=== PATIENT | female | born 1995 | race Caucasian/White ===

== ENCOUNTER → 2018-04-15 11:46 | Outpatient (CLI) | payer OTHER, MEDICAID, SELFPAY ==
[2018-04-15 11:10] VITALS: BMI 22.0
[2018-04-15 12:07] LABS: Absolute Lymphocyte Count 4.28 X10^3/ul (0.83-4.51); Absolute Neutrophil Count 4.5 X10^3/uL (2.0-7.7); Basophil# 0.05 X10^3/uL; Basophil% 0.5 % (0-1); Eosinophil# 0.45 X10^3/uL; Eosinophils% 4.6 % (0-5); Hematocrit 38.3 % (37-47); Hemoglobin 12.5 g/dl (12.0-15.0); Lymphocyte # 4.28 X10^3/ul (4.0); Lymphocyte % 43.8 % (19-41); Mean Corp Hgb Conc 32.6 g/gl (32-36); Mean Corpuscular Hgb 28.3 pg (27.0-32.0); Mean Corpuscular Volume 86.7 fL (81-99); Mean Platelet Vol. 9.3 fl (6.2-12.0); Monocyte# 0.51 X10^3/uL; Monocyte% 5.2 % (0-10); Neutrophil # 4.46 X10^3/uL (2.7-7.7); Neutrophil % 45.7 % (47-70); Platelet Count 276 K/mm3 (150-450); RBC Distribution Width CV 13.1 % (11.6-14.6); RBC Distribution Width SD 41.8 fl (35.1-43.9); Red Blood Count 4.42 M/mm3 (4.2-5.4); White Blood Count 9.8 K/mm3 (4.4-11.0)
[2018-04-15 12:10] LABS: POSITIVE COUNT NO; POSITIVE DIFFERENTIAL NO; POSITIVE MORPHOLOGY NO
[2018-04-15 12:21] LABS: Thyroid Stim Hormone (TSH) 1.65 uIU/mL (0.358-3.74)
== END ==
PROVIDERS: Family Provider Family Medicine; PCP Family Medicine; Referring Provider Obstetrics & Gynecology; Visit Provider Obstetrics & Gynecology
DX: N80.9 Endometriosis, unspecified (principal)
CPT/HCPCS: 36415; 84443; 85025

== ENCOUNTER → 2018-04-23 12:50 | Outpatient (CLI) | payer OTHER, MEDICAID, SELFPAY ==
[2018-04-15 11:10] VITALS: BMI 22.0
--- NOTE | 2018-04-23 12:52 | US_ITS ---
HISTORY: DUB, ENDOMETRIOSIS TECHNIQUE: Transvaginal pelvic ultrasound was performed. Grayscale, spectral and color flow Doppler evaluation of the adnexa. COMPARISON: CT abdomen and pelvis 03/05/14. FINDINGS: UTERUS: anteverted The uterus measures 7.0 x 4.2 x 3.4 cm. There is no uterine mass. The endometrial stripe measures 3.4 mm in AP diameter which is within normal limits. RIGHT OVARY: 2.0 x 2.1 x 2.0 cm. Non-enlarged, normal echogenicity. There is normal arterial inflow and venous outflow present in the right ovary. LEFT OVARY: 2.9 x 1.8 x 1.5 cm. Non-enlarged, normal echogenicity. There is normal arterial inflow and venous outflow present in the left ovary. FREE FLUID: None. US/Pelvic (Non ) IMPRESSION: Unremarkable pelvic ultrasound. at 0507 Reported and signed by: Raymundo Blanchard MD Electronically Signed: Raymundo Blanchard, at 5:06 EDT Tel , Service support ,
--- NOTE | 2018-04-23 12:52 | US_ITS ---
HISTORY: DUB, ENDOMETRIOSIS TECHNIQUE: Transvaginal pelvic ultrasound was performed. Grayscale, spectral and color flow Doppler evaluation of the adnexa. COMPARISON: CT abdomen and pelvis 03/05/14. FINDINGS: UTERUS: anteverted The uterus measures 7.0 x 4.2 x 3.4 cm. There is no uterine mass. The endometrial stripe measures 3.4 mm in AP diameter which is within normal limits. RIGHT OVARY: 2.0 x 2.1 x 2.0 cm. Non-enlarged, normal echogenicity. There is normal arterial inflow and venous outflow present in the right ovary. LEFT OVARY: 2.9 x 1.8 x 1.5 cm. Non-enlarged, normal echogenicity. There is normal arterial inflow and venous outflow present in the left ovary. FREE FLUID: None. US/Transvaginal Non- IMPRESSION: Unremarkable pelvic ultrasound. at 0507 Reported and signed by: Raymundo Blanchard MD Electronically Signed: Raymundo Blanchard, at 5:06 EDT Tel , Service support ,
== END ==
PROVIDERS: Family Provider Family Medicine; PCP Family Medicine; Referring Provider Obstetrics & Gynecology; Visit Provider Obstetrics & Gynecology
DX: N80.9 Endometriosis, unspecified (principal)
CPT/HCPCS: 76830; 76856

== ENCOUNTER 2018-05-16 07:44 | Day surgery (SDC) | payer OTHER, MEDICAID, SELFPAY ==
[2018-04-15 11:10] VITALS: BMI 22.0
[2018-05-14 08:08] VITALS: BMI 22.0
[2018-05-16] VITALS (9 sets, daily range): BP systolic 100–119; BP diastolic 61–73; PULSE 59–83; RESP 14–16; TEMP 36.1–36.6; O2SAT 97–100; BMI 23.4
[2018-05-16 08:15] LABS: Hematocrit 37.6 % (37-47); Hemoglobin 12.6 g/dl (12.0-15.0); Mean Corp Hgb Conc 33.5 g/gl (32-36); Mean Corpuscular Hgb 28.6 pg (27.0-32.0); Mean Corpuscular Volume 85.3 fL (81-99); Mean Platelet Vol. 8.9 fl (6.2-12.0); Platelet Count 259 K/mm3 (150-450); RBC Distribution Width CV 13.1 % (11.6-14.6); RBC Distribution Width SD 40.8 fl (35.1-43.9); Red Blood Count 4.41 M/mm3 (4.2-5.4); White Blood Count 11.1 K/mm3 (4.4-11.0)
[2018-05-16 08:17] LABS: Scan Indicated on CBC? Y/N NO
[2018-05-16] MEDS: Phenazopyridine 95 MG Tablet 190 MG PO (08:23)
[2018-05-16] MEDS: Acetaminophen 500 MG Tablet 1000 MG PO (08:24)
[2018-05-16] MEDS: Gabapentin 600 MG Tablet PO (08:24)
[2018-05-16] MEDS: Enoxaparin 40 MG/0.4 ML Syringe SC (08:24)
[2018-05-16] MEDS: Scopolamine 1mg/72hr Patch 1 PATCH TRANSDERM. (08:25)
[2018-05-16 08:26] LABS: AST(SGOT) 11 U/L (15-37); Alanine Aminotransfer ALT/SGPT 15 U/L (13-56); Albumin, Serum 3.6 g/dL (3.2-5.0); Alkaline Phosphatase 92 U/L (45-117); Bilirubin, Direct 0.07 mg/dL (0.00-0.30); Globulin 3.7 g/dL (2.2-4.2); Protein, Total 7.3 g/dL (6.4-8.2); Prothrombin Time (Protime)PT. 13.4 SECONDS (11.7-14.9)
[2018-05-16 08:27] LABS: Partial Thromboplast Time 31.5 Seconds (24.1-36.2)
[2018-05-16] MEDS: Celecoxib 200 MG Capsule 400 MG PO (08:30)
[2018-05-16] MEDS: Magnesium Sulfate 4gm/100mL 4 GM/100 ML IV.SOLN. IV (08:30)
[2018-05-16] MEDS: Lactated Ringers 1,000 ML 40 ML IV (08:31)
[2018-05-16 08:51] LABS: Bedside Glucose 90 mg/dL (70-110)
[2018-05-16 08:57] LABS: Internal QC Validated? YES +Cl - CLEAR BKGD
[2018-05-16 09:00] LABS: Pregnancy, Urine Negative Negative
--- NOTE | 2018-05-16 09:37 | PCM.HPOB.BLA ---
- Problem List (1) Endometriosis determined by laparoscopy Status: Acute Comment: failed 4 medical management, discussed hysterectomy- plan LAV[facility] BS cysto History and Physical Date of Admission: 05/16/18 Intake Vital Signs 05/14/18 Body Mass Index (BMI) 22.0 05/14/18 Height 5 ft 2 in 05/14/18 Weight: 129 lb 2 oz 05/14/18 Body Mass Index (BMI) 23.6 05/14/18 Blood Pressure 122/72 H Intake Visit Reasons: pre op LAV[facility] BS Cysto ERAS Chief Complaint: pre op LAV[facility] BS Cysto ERAS Academic Support Director Required: No Is patient in pain?: No Allergies azithromycin [From Zithromax] Allergy (Mild, Verified 05/14/18 08:07) Hives amoxicillin trihydrate [From Augmentin] Allergy (Verified 05/14/18 08:07) Hives latex Allergy (Verified 05/14/18 08:07) Rash potassium clavulanate [From Augmentin] Allergy (Verified 05/14/18 08:07) Hives sertraline [From Zoloft] Allergy (Verified 05/14/18 08:07) seizure Medications escitalopram 20 mg tablet 20 mg PO DAILY 04/11/18 [History Confirmed 05/14/18] cyclobenzaprine 10 mg tablet 10 mg PO TID PRN #30 tab 04/18/18 [Rx Confirmed 05/14/18] oxycodone-acetaminophen 5 mg-325 mg tablet 1 tab PO Q6H PRN #10 tab 05/02/18 [Rx Confirmed 05/14/18] Norgestimate-Ethinyl Estradiol [Sprintec 28 Day Tablet] 1 ea PO DAILY 05/09/18 [History Confirmed 05/14/18] Is last menstrual period known: No Post menopausal: No Patient : No : No [facility] History Anxiety and depression (Acute) Endometriosis (Acute) Gestational hypertension (Acute) Menorrhagia (Acute) PCOS (polycystic ovarian syndrome) (Acute) Surgical History H/O laparoscopy (Acute) H/O laparoscopy (Acute) Hx of tonsillectomy (Acute) Family History Mother Fibroid Social History adopted: No household members: family number of children: 1 current occupational status: other current occupation: homemaker pets and animals: Yes Smoking Status: Current every day smoker second hand exposure: Yes alcohol intake: never substance use type: does not use seatbelt use: always do you feel safe at home: Yes additional social history: Heriberto HPI pre op LAV[facility] BS Cysto ERAS: Details: SUSI ROCHA is a 22 year old who presents for preop exam. she has a long history of endometriosis and has failed 4 different medical modalities and had surgery in the past. she and her spouse have discussed at length the sterilizatio nimplications of hysterectomy and finality of it, and she is wanting to proceed. after long discussion with the patient we will plan to keep ovaries due to young age. we discussed the risk of future surgery to remove these. Female Reproductive History Cycle Length: 21-35 Bleeding Duration: 7 Questions: Metorrhagia: No, Sexually active: Yes, Dyspareunia: Yes, PCB: Yes Pregancy History 2 Elective abortions Hx Para 1 Spontaneous abortions Hx # Term Pregnancies Ectopic pregnancies Hx # Pregnancies Multiple births # of living children 1 Past Pregnancies Del. Date Name GA/Weeks Outcome Route Bth Weight [facility] 02/[facility]16 Eder 37 live - full term 6lbs 13.8oz Male epidural Fina Delivery Date: 02/25/16 On 04/11/18 @ 15:17 [place] Gestation hypertension; ROS Const Constitutional: Denies fatigue, fever(s), headache(s), increased appetite, poor appetite, weight gain or weight loss Cardio Card: Denies chest pain Resp Resp: Denies cough or dyspnea : Reports as per HPI; denies difficulty urinating, painful urination, nipple discharge, urinary frequency, urinary incontinence, urinary hesitancy, urinary urgency, vaginal discharge, vaginal dryness, vaginal odor or vaginal itching Skin Skin/Breast: Denies change in hair, breast lump, breast pain, breast skin changes or nipple discharge Exam Const General: cooperative, healthy appearing, comfortable, no acute distress, well developed Nutritional Appearance: average body habitus Orientation: alert HENMN Head: normal to inspection, normocephalic Neck Neck: normal visual inspection, trachea midline Thyroid: thyroid normal Resp Effort & Inspection: normal respiratory effort GI Inspection: normal to inspection, non-distended Palpation: soft, no hepatosplenomegaly General: bladder normal to palpation External Female Exam: normal external appearance, normal appearance of the urethra Urethra: normal appearance of the urethra, normal palpation, no discharge Speculum Exam - Vagina: normal appearance of the vagina, normal vaginal discharge Speculum Exam - Cervix: normal appearance of the cervix, nontender Bimanual Exam- Vagina & Uterus: normal bimanual exam, uterine size normal, bladder normal to palpation, uterine shape normal, No cervical tenderness, uterine mobility normal, uterine consistency normal, normal cervical palpation, uterus non-tender Bimanual Exam- Adnexa, other: normal adnexae, adnexae mobile, no adnexal masses, pelvic support normal Pelvic Support: normal Skin General: no rashes or lesions noted Assessment & Plan Problems 1. Endometriosis determined by laparoscopy N80.9 failed 4 medical management, discussed hysterectomy- plan LAVH BS cysto Plan plan lavh bs cysto. discussed surgical risks including risks of anesthesia, infection, bleeding, injury to bowel, bladder or blood vessels, and patient wishes to proceed with surgery. Coding Level of Care Code No Charge Diagnoses Endometriosis determined by laparoscopy N80.9 UPDATE- I have seen the patient and performed any clinically relevant updates to the history and physical exam. Belkys Cadet MD
--- NOTE | 2018-05-16 09:40 | HYST_PTH ---
PATIENT: SUSI ROCHA LOC: [facility] – [place] U#:[id number] AGE/SX: 22/ ROOM: RE05/16/[address]: Dr. Belkys Cadet MD : [id number] BED: DIS: 05/16/2018 SPEC #: [id number] RECD: 05/17/18 07:13 STATUS: ANDERS ROBERTA #: [id number] BRODY: 05/16/18 09:[address]: Belkys Cadet DEPT: SURGICAL PATHOLOGY RECD BY: Earle Palacios ENTERED: 05/17/18 10:57 SP TYPE: HYSTERECT OTHR DR: Dr. Curtis Morley, DO Tissues: Uterus, NOS Procedures: Surgery Specimen Level V HEADER OPERATION: ERAS, hysterectomy, Lap-assisted vaginal, salpingectomy PRE-OP DIAGNOSIS: Endometriosis TISSUE SUBMITTED: Uterus, bilateral fallopian tubes MICROSCOPIC DIAGNOSIS Uterus and bilateral fallopian tubes, vaginal hysterectomy and bilateral salpingectomy: Cervix - acute and chronic inflammation and squamous metaplasia. Endometrium - early secretory endometrium. Myometrium - no pathologic diagnosis. Bilateral fallopian tubes - no pathologic diagnosis. JOSE:gino 05/20/18 MICROSCOPIC DESCRIPTION Slides are reviewed. GROSS DESCRIPTION Received in fixative is one container labeled with the patient's name and designated uterus, bilateral fallopian tubes. The specimen consists of a hysterectomy specimen consisting of uterus with cervix and attached bilateral fallopian tubes. The uterus with cervix weighs 60 gm and measures 8.5 x 6 x 4 cm. The serosal surface is pratt, glistening. The ectocervical mucosa is unremarkable. The external os is oval in contour and covered with mucoid fluid. The endocervical canal measures 3 cm in length and the endocervical mucosa is unremarkable. The triangular endometrial cavity measures 4.5 cm in length and 2 cm in width. The endometrium is pratt, glistening without any mass lesion and measures 0.1 cm in thickness. Sections of the uterine wall do not reveal any mass lesion and measures up to 2 cm in thickness. The right fallopian tube measures 4.5 cm in length and 0.6 cm in diameter. The fimbrial end is identified. Sections reveal unremarkable cut surfaces. The left fallopian tube is similar appearance to right and measures 4 cm in length and 0.7 cm in diameter. Portable Feed Mill Operator sections are submitted in eight cassettes as follows: 1 - anterior cervix, 2 - posterior cervix, 3 & 4 - anterior uterine wall, 5 & 6 - posterior uterine wall, 7 - right fallopian tube, 8 - left fallopian tube. / JOSE:gino 05/17/18 TC:3 CPT: 72826
[2018-05-16] MEDS: Cefazolin 2 GM in 0.9% Normal Saline 100 ML IV (10:23)
[2018-05-16] MEDS: Vasopressin 20 UNITS/ML Vial (11:10)
--- NOTE | 2018-05-16 11:39 | OP.PCM_ITS ---
Problem List (1) Endometriosis determined by laparoscopy Status: Acute Comment: failed 4 medical management, discussed hysterectomy- plan LAVH BS cysto Report of Operation Date of Procedure: 05/16/18 Pre-Operative Diagnosis: pelvic pain endometriosis Post-Operative Diagnosis: same Surgery/Procedure Performed:: lavh bs cysto Description of Surgical Findings:: normal uterus tubes ovaries senior procurement specialist: Yany Guillaume Type of Anesthesia:: General Special Medications: none Specimen's removed: uterus tubes Drains: michael Estimated Blood Loss (mL): 50 Fluids Replaced: crystalloid Description of Procedure: Patient received preoperative antibiotics and SCDs were on preoperatively. Patient was taken back to the operating room and placed in the dorsal lithotomy position. General anesthesia was induced and patient was prepped and draped in normal sterile fashion. Uterine manipulator was placed inside the uterus and Michael catheter placed in the bladder. The umbilicus was grasped with towel clamps and an intraumbilical incision was made after injecting with quarter percent Marcaine and a Veress needle entered into the abdomen confirmed to be intra-abdominal with a low opening pressure. Abdomen was insufflated with CO2 gas and the Veress needle removed and the 5 mm trocar was placed under direct visualization without complication. Right and left lower quadrants were transilluminated and injected with quarter percent Marcaine and 5 mm ports placed under direct visualization. Pelvis was well visualized see operative findings for additional information. Bilateral fallopian tubes were identified and transected with the LigaSure device across the mesosalpinx to the level of the utero-ovarian ligament which was also transected with the LigaSure device. The broad ligament was opened up by transecting the round ligament bilaterally and skeletonizing the uterine vessels bilaterally and creating a bladder flap using the LigaSure device. The uterine arteries were transected bilaterally with good visualization of the bladder and the ureters were seen to be inferior lateral to the operative area. Attention was then paid to the vaginal portion of the procedure and the cervix was grasped with Jolly clamps and circumferentially injected with dilute vasopressin. A circumferential incision was made and the vaginal mucosa was mobilized off posteriorly and the cul-de-sac entered into sharply and a longneck speculum placed. The anterior cul-de-sac was then identified and entered into sharply. The uterosacral ligaments were clamped cut and suture ligated with 0 Monocryl bilaterally followed by the cardinal ligaments which were clamped cut and suture ligated bilaterally with 0 Monocryl. The uterus serially descended and was removed without difficulty with minimal morcellation. Pelvic sidewall pedicles were checked and noted to have excellent hemostasis. The vaginal mucosa was reapproximated incorporating the posterior peritoneum. This was reapproximated using 0 Vicryl [id number] sutures. Excellent hemostasis was noted. The cystoscopy was then performed and bilateral ureteral strong spray was noted and the bladder was noted to have no abnormality or lesions seen. Michael catheter was replaced and then attention paid to the abdominal portion of the procedure again. The pelvis and cul-de-sac was well visualized and no significant active bleeding noted. Pressure was taken down and the areas visualized and noted of excellent hemostasis. All ports were removed under direct visualization without complication and the abdomen was desufflated of air. The instruments removed from the abdomen and the vagina vaginal sweep was negative. Port sites on the abdomen were closed with 4-0 Monocryl interrupted sutures and Steri's and windows were applied. She was awoken and taken recovery in stable condition. Grafts/Implants Used: none - Complications none - Admit VTE Documentation VTE Present on Admission: No VTE Mechan Device Prophylaxis: SCD's VTE Pharm Prophylaxis ordered?: Yes
[2018-05-16] MEDS: Bupivacaine 0.25% 30 ML Vial (11:40)
--- NOTE | 2018-05-16 11:43 | DCINST_ITS ---
Discharge Diet: No Restrictions Discharge Activity: Return to Normal Activity, May Not Drive, May Shower May resume sexual activity in: 6-8 weeks Call your doctor if your incision/area has: Continuous Slow Oozing, Sudden Increased Bleeding, Increased Pain/ Swelling, Increased Redness, Foul Smelling Discharge Call your doctor if you observe: Fever of 101 or Higher, Inability to urinate, Inability to have a bowel movement, Using more than one pad per hour Allergies/Adverse Reactions: Allergies azithromycin [From Zithromax] Allergy (Mild, Verified 05/14/18 08:07) Hives amoxicillin trihydrate [From Augmentin] Allergy (Verified 05/14/18 08:07) Hives latex Allergy (Verified 05/14/18 08:07) Rash potassium clavulanate [From Augmentin] Allergy (Verified 05/14/18 08:07) Hives sertraline [From Zoloft] Allergy (Verified 05/14/18 08:07) seizure Medications to take at Discharge escitalopram 20 mg tablet 20 mg PO DAILY 04/11/18 cyclobenzaprine 10 mg tablet 10 mg PO TID PRN #30 tab 04/18/18 oxycodone-acetaminophen 5 mg-325 mg tablet 1 tab PO Q6H PRN #10 tab 05/02/18 Norgestimate-Ethinyl Estradiol [Sprintec 28 Day Tablet] 1 ea PO DAILY 05/09/18 Naproxen [Naprosyn] 250 - 500 mg PO Q8H PRN PRN #30 tablet 05/16/18 Oxycodone HCl/Acetaminophen [Percocet 5-325] 1 - 2 tablet PO Q4H PRN PRN 7 Days #15 tablet 05/16/18 The following prescriptions were given: Oxycodone HCl/Acetaminophen [Percocet 5-325] 1 - 2 tablet PO Q4H PRN PRN 7 Days #15 tablet PRN Reason: Pain Naproxen [Naprosyn] 250 - 500 mg PO Q8H PRN PRN #30 tablet PRN Reason: MILD PAIN Orders to be completed after discharge: Type & Screen Time Frame: 05/09/18, Facility: [facility], Location: Laboratory Partial Thromboplast Time Time Frame: 05/09/18, Location: Laboratory CBC-Complete Blood Cnt No Diff Time Frame: 05/09/18, Location: Laboratory Liver Profile Time Frame: 05/09/18, Location: Laboratory Prothrombin Time w/INR Time Frame: 05/09/18, Location: Laboratory Primary Care Physician: Curtis Morley DO [Primary Care Provider] - Test Results: Test results from this visit will be discussed in further detail at your follow- up appointment, if applicable. Please Follow Up With: Belkys Cadet MD - [phone]
[2018-05-16] MEDS: Ketorolac 30 MG/ML Syringe IV (13:08)
== END 2018-05-16 14:49 | disposition home or self-care (01) ==
LOC: SDC 07:49 → AC 07:50
PROVIDERS: Anesthesiology; Family Provider Family Medicine; PCP Family Medicine; Referring Provider Obstetrics & Gynecology; Visit Provider Obstetrics & Gynecology
PROC: 0UT9FZZ Resection of Uterus, Via Natural or Artificial Opening With Percutaneous Endoscopic Assistance (ICD-10-PCS; CPT 58552; principal; 2018-05-16 09:15)
DX: N72 Inflammatory disease of cervix uteri (principal); N80.9 Endometriosis, unspecified; N92.0 Excessive and frequent menstruation with regular cycle; E28.2 Polycystic ovarian syndrome; F32.9 Major depressive disorder, single episode, unspecified; F41.9 Anxiety disorder, unspecified; F17.200 Nicotine dependence, unspecified, uncomplicated; Z79.899 Other long term (current) drug therapy
CPT/HCPCS: 00840; 58552; 36415; 80076; 81025; 82962; 85027; 85610; 85730; 86850; 86900; 88307; J7120; J1940; J2405

== ENCOUNTER → 2018-07-25 12:38 | Outpatient (CLI) | payer OTHER, MEDICAID, SELFPAY ==
[2018-06-26 11:08] VITALS: BMI 23.4
--- NOTE | 2018-07-25 12:41 | US_ITS ---
STUDY: ULTRASOUND OF THE FEMALE PELVIS - COMPLETE REASON FOR EXAM: Female, 22 years old. Pelvic pain. History of vaginal hysterectomy 8 weeks ago. TECHNIQUE: Transabdominal TECHNICAL QUALITY: Adequate. COMPARISON: Pelvic ultrasound, April 23, 2018. FINDINGS: The uterus is surgically absent The right ovary is visualized. The right ovary measures 3.1 x 1.8 x 2.3 cm. There is no right ovarian cyst or ovarian mass. There is no visualized right adnexal mass or complex lesion. There is normal arterial and normal venous vascularity. The left ovary is visualized. The left ovary measures 3.2 x 2.7 x 2.7 cm. There are multiple follicles of the left ovary without a dominant 1.5 x 1.5 x 1.7 cm follicle/cyst.. There is no visualized left adnexal mass or complex lesion. There is normal arterial and normal venous vascularity. There is no fluid in the cul-de-sac. The pre void volume of the bladder was 80 ml. The urinary bladder appears grossly normal. Polycystic ovary disease: No. US/Pelvic (Non ) IMPRESSION: 1. Surgical absence of the uterus. There is no major interval change. 2. Normal ovaries. Electronically Signed: Luis Enrique Mathis DO at 17:51 EDT Tel [phone], Service support ,
== END ==
PROVIDERS: Visit Provider Obstetrics & Gynecology
DX: R10.2 Pelvic and perineal pain (principal)
CPT/HCPCS: 76856; 93976

== ENCOUNTER 2018-08-01 13:53 | Emergency (ER) | payer OTHER, MEDICAID, SELFPAY ==
[2018-06-26 11:08] VITALS: BMI 23.4
[2018-08-01 13:54] VITALS: BP 110/74; PULSE 85; RESP 16; TEMP 36.7; O2SAT 97; BMI 22.8
--- NOTE | 2018-08-01 14:03 | CT_ITS ---
STUDY: CT ABDOMEN AND PELVIS WITHOUT CONTRAST REASON FOR EXAM: Female, 22 years old. RADIATION DOSAGE (If Supplied By Facility): CTDIvol = ( 6.14 ) mGy, DLP = ( 297.44 ) mGycm TECHNIQUE: Transaxial images were obtained from the dome of the diaphragm to the symphysis pubis without oral contrast, and without intravenous contrast. Sagittal and coronal images were reconstructed. Individualized dose optimization techniques were used for this CT. COMPARISON: March 05, 2014 FINDINGS: The liver and spleen are normal in size and attenuation no focal lesion noted. The pancreas is unremarkable. The the adrenal glands are within normal limits. Both kidneys are normal in size, shape and position no hydronephrosis or stone formation. The small and large bowel are within normal limits. The appendix could not be seen. There are small multiple mesenteric lymph nodes present. The urinary bladder is not distended so it cannot be evaluated properly. I do recommend ultrasound to evaluate the bladder and see the pelvic organ in the better way. CT/Abdomen/Pelvis without Cont IMPRESSION: Multiple small lymph nodes within the mesentery of the study is otherwise negative Electronically Signed: Shannen Wilks, at 15:03 EDT Tel , Service support ,
--- NOTE | 2018-08-01 14:05 | ED.DCSUM_ITS ---
History of Present Illness Chief Complaint: Flank Pain Informant: Patient Onset: Days Context: Sudden Onset Timing: Continuous Quality: Pain Location: Initially upper abdomen now right flank to groin Current Severity: Mild Maximum Severity: Moderate Worsened by: Nothing Relieved by: Nothing Associated Symptoms: Nausea and vomiting x6 today and temperature to 101 ?F Narrative: Patient is a 22-year-old female who presents from [facility] for evaluation because their scanner is not functioning. She complains of documented temperature to 101.0 ?F. She does report urgency. She states she was told her urine is clean. She denies history of renal or ureterolithiasis. There is a family history of renal/ureteral lithiasis. She denies headache. She does report nasal congestion, which she attributes to allergies. She denies sore throat or ear pain. She denies cough. She denies food intolerance. There is no history of trauma. Prior similar symptoms: No Recent Illness/Hospitalization: No - Past Medical History (1) Endometriosis determined by laparoscopy Status: Acute Comment: s/p hyst Past Medical History - Allergies and Home Meds Allergies/Adverse Reactions: Allergies azithromycin [From Zithromax] Allergy (Mild, Verified 08/01/18 13:56) Hives amoxicillin trihydrate [From Augmentin] Allergy (Verified 08/01/18 13:56) Hives latex Allergy (Verified 08/01/18 13:56) Rash potassium clavulanate [From Augmentin] Allergy (Verified 08/01/18 13:56) Hives sertraline [From Zoloft] Allergy (Verified 08/01/18 13:56) seizure Primary Care Physician: Curtis Morley DO [Primary Care Provider] - Prior records reviewed: Yes Past Medical History: None Surgical History: hysterectomy Lives: With Family Smoking Status: Current every day smoker Alcohol: Rare Drugs: None Review of Systems General: Reports: Chills, Fever, Malaise. Denies: Subjective, Sweats Eyes: Denies: Visual changes - bilaterally, Diplopia ENT: Denies: Rhinorrhea, Sore throat Cardiovascular: Denies: Chest pain, Palpitations Respiratory: Denies: Dyspnea, Cough, Dyspnea on exertion Gastrointestinal: Reports: Abdominal pain, Nausea, Vomiting. Denies: Diarrhea, Constipation, Melena, Hematochezia, -, - Genitourinary: Reports: Frequency Musculoskeletal: Reports: Back pain. Denies: Myalgias, Arthralgias, Neck pain, Swelling, Extremity Pain Skin: Denies: Rash, Wounds Neurological: Denies: Headache, Weakness, Numbness Hematologic: Denies: Easy bruising, Easy bleeding Physical Exam Vital Signs/Narrative: Vital Signs Temp Pulse Resp BP Pulse Ox 08/01/18 13:54 98.0 F 85 16 110/74 97 Inital Vital Signs reviewed: Yes General: Well nourished, Well developed, No Acute Distress Head: Normocephalic, Atraumatic Eyes: Perrl, EOMI ENT: Moist mucous membranes, No rhinorrhea Neck: Supple, Nontender Cardiovascular: Regular rate, Regular rhythm, No murmurs Respiratory: No distress, CTA bilaterally, Chest nontender Abdomen: Soft, Nondistended, Normal bowel sounds, No masses, Tender. Negative for: Nontender, Guarding, Rebound tenderness Back: Nontender, Normal Inspection, CVA tenderness Extremities: Nontender, No edema Skin: Normal color, No rash Neurological: Alert, Oriented x3, Cranial nerves II-XII grossly intact, Normal Strength, Normal Sensation Psychological: Negative for: Normal affect, Normal Mood, Depressed, Tearful, Agitated, - Diagnostic/Tx/Re-eval Impressions Abdomen/Pelvis CT 08/01/18 14:03 IMPRESSION: Multiple small lymph nodes within the mesentery of the study is otherwise negative Electronically Signed: Shannen Wilks, at 15:03 EDT Tel , Service support , 08/01/18 14:03 Abdomen/Pelvis without Cont [CT] Stat Laboratory Results 08/01/18 08/01/18 08/01/18 14:05 14:05 14:15 WBC 10.6 RBC 4.57 Hgb 12.9 Hct 38.2 MCV 83.6 MCH 28.2 MCHC 33.8 RDW 13.0 RDW Differential 39.0 Plt Count 297 MPV 9.2 Immature Gran % (Auto) 0.200 Neut % (Auto) 43.6 L Lymph % (Auto) 42.3 H [place] % (Auto) 9.9 Eos % (Auto) 3.6 Baso % (Auto) 0.4 Absolute Neuts (auto) 4.6 Absolute Lymphs (auto) 4.49 Total Counted Not Reportable Sodium 139 Potassium 4.1 Chloride 109 H Carbon Dioxide 26.0 Anion Gap 4 L BUN 10 Creatinine 0.76 Estim Creat Clear Calc 90.28 Est GFR (MDRD) Af Amer 119 Est GFR (MDRD) Non-Af 99 BUN/Creatinine Ratio 13.1 Glucose 86 Calcium 9.0 Urine Color Yellow Urine Clarity Clear Urine pH 7.0 Ur Specific [place] 1.010 Urine Protein Negative Urine Glucose (UA) Normal Urine Ketones Negative Urine Occult Blood 10 H Urine Nitrite Negative Urine Bilirubin Negative Urine Urobilinogen Normal Ur Leukocyte Esterase Negative Urine RBC 0-5 SEEN Urine WBC 0 SEEN Ur Squamous Epith Cells 0 SEEN Urine Bacteria 0 SEEN Urine Mucus 0 SEEN - Medical Decision Making This history of flank pain and fever need to rule out pyelonephritis versus obstructing stone with infection versus other etiology. CT of the abdomen and pelvis without contrast was ordered. Appropriate blood work was ordered. Urine analysis was ordered. Work-up revealed mesenteric lymphadenopathy. Will treat as mesenteric lymphadenopathy with oral analgesics and discharged home. ED Disposition - Plan for ED Patient: Disposition: Home or Assisted Living Diagnosis: Mesenteric lymphadenopathy Instructions: Adenitis, Mesenteric Prescriptions: Hydrocodone Bitart/Apap 5-325 [Trent 5MG-325MG] 1 tablet PO Q6H PRN PRN 3 Days #10 tablet PRN Reason: Pain Transmission Status: Received by [facility]/pharmacy #[id number] Referrals: Curtis Morley DO [Primary Care Provider] - 1 Week if not improving Additional Instructions: Take either 4 Advil every 8 hours or 2 Aleve every 12 hours for next 3 to 5 days. Take Trent for severe pain. Your prescription was electronically transmitted to [facility] pharmacy in [place].
[2018-08-01 14:20] LABS: Absolute Lymphocyte Count 4.49 X10^3/ul (0.83-4.51); Absolute Neutrophil Count 4.6 X10^3/uL (2.0-7.7); Basophil# 0.04 X10^3/uL; Basophil% 0.4 % (0-1); Eosinophil# 0.38 X10^3/uL; Eosinophils% 3.6 % (0-5); Hematocrit 38.2 % (37-47); Hemoglobin 12.9 g/dl (12.0-15.0); Lymphocyte # 4.49 X10^3/ul (4.0); Lymphocyte % 42.3 % (19-41); Mean Corp Hgb Conc 33.8 g/gl (32-36); Mean Corpuscular Hgb 28.2 pg (27.0-32.0); Mean Corpuscular Volume 83.6 fL (81-99); Mean Platelet Vol. 9.2 fl (6.2-12.0); Monocyte# 1.05 X10^3/uL; Monocyte% 9.9 % (0-10); Neutrophil # 4.64 X10^3/uL (2.7-7.7); Neutrophil % 43.6 % (47-70); Platelet Count 297 K/mm3 (150-450); Red Blood Count 4.57 M/mm3 (4.2-5.4); White Blood Count 10.6 K/mm3 (4.4-11.0)
[2018-08-01 14:21] LABS: Bacteria 0 SEEN /hpf (None Seen); Mucous, Urine 0 SEEN /hpf (<or=2+); Squamous Epithelial Cells - UA 0 SEEN /hpf (5-10); White Blood Cells 0 SEEN /hpf (0-5)
[2018-08-01 14:22] LABS: POSITIVE COUNT NO; POSITIVE DIFFERENTIAL NO; POSITIVE MORPHOLOGY NO
[2018-08-01] MEDS: 0.9% Normal Saline 1,000 ML 250 ML IV (14:24)
[2018-08-01] MEDS: Ketorolac 15 MG/ML Vial IV (14:24)
[2018-08-01] MEDS: Ondansetron 4 MG/2 ML Vial IV (14:24)
[2018-08-01 14:29] LABS: Color, Urine Yellow (Yellow); Glucose, Dipstick Normal (Normal); Ketone-Dipstick Negative (Negative); Leukocyte Esterase-Dipstick Negative /ul (Negative); Nitrite-Dipstick Negative (Negative); Occult Blood-Urine 10 /ul (Negative); Protein-Dipstick Negative (Negative); Urine Bilirubin Dipstick Negative (Negative); Urine Clarity Clear (Clear); Urine Urobilinogen Normal (Normal)
[2018-08-01 14:33] LABS: Anion Gap 4 (5-15); BUN 10 mg/dL (7-18); BUN/Creat Ratio 13.1 RATIO (10-20); Chloride 109 mmol/L (98-107); Creatinine, Serum 0.76 mg/dL (0.55-1.02); EST Glomerular Filtration Rate 99 mL/min (>60); Est Glom Filt Rate - Afr Amer 119 mL/min (>60); Estimated Creatinine Clearance 90.28 ml/min; Glucose 86 mg/dL (74-106); Potassium 4.1 mmol/L (3.5-5.1); Sodium Level 139 mmol/L (136-145)
[2018-08-01 14:37] LABS: Red Blood Cells-Urine 0-5 SEEN /hpf (0-5)
[2018-08-01 15:49] VITALS: BP 107/69; PULSE 63; RESP 16
[2018-08-01] MEDS: Ondansetron ODT 4 MG Tablet PO (15:52)
== END 2018-08-01 15:53 | disposition home or self-care (01) ==
PROVIDERS: Emergency Provider Emergency Medicine; Family Provider Family Medicine; PCP Family Medicine
DX: R59.0 Localized enlarged lymph nodes (principal); F17.200 Nicotine dependence, unspecified, uncomplicated; Z88.0 Allergy status to penicillin; Z88.1 Allergy status to other antibiotic agents; Z90.710 Acquired absence of both cervix and uterus
CPT/HCPCS: 74176; 80048; 81001; 85025; 96361; 96374; 96375; 99283; J7030; J2405

== ENCOUNTER → 2021-07-11 | Outpatient (CLI) | payer OTHER, SELFPAY | END | disposition home or self-care (01) | PROVIDERS: PCP Nurse Practitioner Family; Referring Provider Nurse Practitioner Women's Health; Visit Provider Nurse Practitioner Women's Health | DX: R10.2 Pelvic and perineal pain (principal) | CPT/HCPCS: 87070; 87205 ==

== ENCOUNTER → 2021-07-13 | Outpatient (CLI) | payer OTHER, SELFPAY ==
--- NOTE | 2021-07-13 15:39 | US_ITS ---
STUDY: ULTRASOUND OF THE FEMALE PELVIS - COMPLETE REASON FOR EXAM: Female, 25 years old. pelvic pain TECHNIQUE: Transabdominal COMPARISON: CT 08/01/2018. FINDINGS: The uterus is surgically absent. The right ovary is visualized. The right ovary measures 4.8 x 2.4 cm. Cyst measures 22 x 16 mm. No follow-up required. There is no visualized right adnexal mass or complex lesion. There is normal arterial and normal venous vascularity. The left ovary is visualized. The left ovary measures 2.8 x 1.6 cm. There is no left ovarian cyst or ovarian mass. There is no visualized left adnexal mass or complex lesion. There is normal arterial and normal venous vascularity. There is no fluid in the cul-de-sac. Urinary bladder is 60 5 cc. US/Pelvic (Non ) IMPRESSION: Hysterectomy changes. Electronically Signed: Kale Haq MD at 16:41 EDT ,
== END | disposition home or self-care (01) ==
LOC: US 15:38
PROVIDERS: PCP Nurse Practitioner Family; Referring Provider Nurse Practitioner Women's Health; Visit Provider Nurse Practitioner Women's Health
DX: R10.2 Pelvic and perineal pain (principal)
CPT/HCPCS: 76856; 93976

== ENCOUNTER 2021-07-19 15:56 | Emergency (ER) | payer OTHER, SELFPAY ==
[2021-07-19 15:57] VITALS: BP 141/89; PULSE 95; RESP 14; TEMP 37.2; BMI 21.2
--- NOTE | 2021-07-19 16:04 | CT_ITS ---
EXAM: CT ABDOMEN AND PELVIS WITH INTRAVENOUS CONTRAST CLINICAL INDICATION: RLQ pain TECHNIQUE: Helically acquired images were obtained of the abdomen and pelvis with intravenous contrast. This CT exam was performed using one or more of the following dose reduction techniques: automated exposure control, adjustment of the mA and/or kV according to patient size, and/or use of iterative reconstruction technique. This report was created using [employer] report generation technology. CONTRAST: IV 75mL [id number] COMPARISON: 08/01/2018 FINDINGS: LOWER THORAX: Unremarkable. Lung bases are clear. No cardiomegaly. No significant pericardial effusion. ABDOMEN: LIVER: Unremarkable. Homogeneous. No focal mass. GALLBLADDER AND BILE DUCTS: Unremarkable. No calcified gallstones. No gallbladder distention or wall edema. No intra- or extrahepatic biliary ductal dilation. PANCREAS: Unremarkable. No focal cystic or solid mass. SPLEEN: Unremarkable. Normal size without focal cystic or solid mass. ADRENALS: Unremarkable. No nodules. KIDNEYS AND URETERS: Unremarkable. Normal renal size and position. No hydronephrosis. STOMACH AND BOWEL: There is a mildly dilated fluid-filled loop of small bowel in the upper abdomen. There are also fluid-filled loops of small bowel in the lower abdomen which may represent enteritis. PELVIS: APPENDIX: Appendix is within normal limits. BLADDER: Unremarkable. REPRODUCTIVE: Unremarkable as visualized. No mass. ABDOMEN and PELVIS: INTRAPERITONEAL SPACE: Unremarkable. No ascites or other fluid collection. No free air. BONES/JOINTS: Unremarkable. No suspicious lytic or blastic abnormality. SOFT TISSUES: Unremarkable. No discrete abdominal or pelvic wall hernia. VASCULATURE: Unremarkable. Abdominal aorta is non-dilated. LYMPH NODES: Unremarkable. No enlarged lymph nodes. CT/Abdomen/Pelvis W IV Cont ONLY IMPRESSION: Fluid-filled loops of bowel in the pelvis with a mildly dilated loop of small bowel in the upper abdomen which may represent enteritis. No other acute abnormalities are identified. The appendix is within normal limits. Electronically Signed: Ike Huffman MD at 17:26 EDT ,
--- NOTE | 2021-07-19 16:05 | EDS_ITS ---
HPI HPI - GI History of Present Illness Chief Complaint: Abd Pain Narrative Narrative: 25-year-old female presenting with right lower quadrant and right upper quadrant abdominal pain. She states has had pain for about a week. This is worse over the last 2 days and she developed diarrhea. No black or bloody stools. She denies urinary complaints. She does have a history of kidney stones but states this does not feel similar. She reports that she had a fever of 101 yesterday and took Tylenol and this improved. She is already had a pelvic ultrasound this week by her barrel drainer and this was essentially normal. She was seen today to start her on pain medication for her history of endometriosis which was diagnosed by laparoscopy, however her barrel drainer wants to make sure that she does not have anything acute happening in the abdomen before starting these medications. [facility] Medical History Anxiety and depression Endometriosis Gestational hypertension Menorrhagia PCOS (polycystic ovarian syndrome) Home Medications cholecalciferol (vitamin D3) 1,250 mcg (50,000 unit) capsule 1,250 mcg PO QWEEK 07/11/21 [History Last Taken Unknown] diclofenac potassium 50 mg tablet 50 mg PO BID 07/11/21 [History Last Taken Unknown] mirtazapine 15 mg tablet 15 mg PO QHS 07/11/21 [History Last Taken Unknown] elagolix 200 mg tablet 200 mg PO BID #60 tab 07/19/21 [Rx Last Taken Unknown] oxycodone-acetaminophen 5 mg-325 mg tablet 1 tab PO Q6H 7 Days #20 tab 07/19/21 [Rx Last Taken Unknown] Allergy/AdvReac Type Severity Reaction Status Date / Time azithromycin [From Zithromax] Allergy Mild Hives Verified 07/19/21 15:57 amoxicillin trihydrate Allergy Hives Verified 07/19/21 15:57 [From Augmentin] latex Allergy Rash Verified 07/19/21 15:57 potassium clavulanate Allergy Hives Verified 07/19/21 15:57 [From Augmentin] sertraline [From Zoloft] Allergy seizure Verified 07/19/21 15:57 Family History Mother Fibroid Surgical History H/O laparoscopy H/O laparoscopy History of VANITA Hx of tonsillectomy Social History adopted: No household members: family number of children: 1 current occupational status: employed current occupation: [employer] pets and animals: Yes Smoking Status: Current every day smoker tobacco type: cigarettes second hand exposure: Yes alcohol intake: never substance use type: does not use seatbelt use: always do you feel safe at home: Yes additional social history: Herib[facility] JAMES ED Constitutional Constitutional ED: Reports fever(s); Denies chills ENT ENT ED: Denies rhinorrhea or sore throat Cardiovascular Cardiovascular: Denies chest pain or palpitations Respiratory/Chest Respiratory/Chest: Denies cough or dyspnea Gastrointestinal Gastrointestinal: Reports abdominal pain, diarrhea, nausea and vomiting Genitourinary Genitourinary ED: Denies dysuria or hematuria Musculoskeletal Musculoskeletal: Reports myalgias; Denies arthralgias Integumentary Denies rash Neurologic Neurologic: Denies headache(s) or weakness Psychiatric Psychiatric: Denies anxiety or depression EXAM Physical Exam Const Vital Signs: 07/19/21 15:57 07/19/21 18:56 Temperature 98.9 F Temperature Source Temporal Pulse Rate 95 Respiratory Rate 14 Blood Pressure 141/89 H 101/65 Blood Pressure Mean 106 Positive well nourished General Appearance ED: NAD; Negative for pallor HEENT Reports moist mucous membranes normocephalic and atraumatic Eyes PERRL and EOMs intact bilaterally Resp normal respiratory effort and clear to auscultation bilaterally Cardio regular rate and regular rhythm GI Palpation: soft and tender RLQ and RUQ Back/Spine no CVA tenderness Neuro CN's II-XII intact bilaterally and moves all extremities Sensorium / Orientation: alert and oriented to person Motor Exam: strength 5/5 throughout Psych mental status grossly normal and thought process normal Skin General Skin Exam: Negative for jaundice or pallor Lesions: no lesions Rashes: no rashes MDM MDM MDM Narrative Medical decision making narrative: Patient's urinalysis is negative for infection. hCG negative. BMP is unremarkable. CT abdomen pelvis is obtained after given the patient morphine and Zofran. This does not show any acute surgical findings it does show nonspecific finding of enteritis. Patient does have diarrhea. Since her blood work and imaging are normal I feel she is safe to be discharged home. She is already been prescribed medication for pain by gynecology. Patient is amenable to being discharged at this time. Impression: 1. Abdominal pain 2. Enteritis Lab Data Attestation: I reviewed the patient's lab results. Labs: Laboratory Results - last 24 hr 07/19/21 07/19/21 07/19/21 16:20 16:20 16:20 WBC Cancelled Corrected WBC Cancelled RBC Cancelled Hgb Cancelled Hct Cancelled MCV Cancelled MCH Cancelled MCHC Cancelled RDW Std Deviation Cancelled RDW Coeff of Tomasz Cancelled Plt Count Cancelled MPV Cancelled Immature Gran % (Auto) Cancelled Neut % (Auto) Cancelled Lymph % (Auto) Cancelled [place] % (Auto) Cancelled Eos % (Auto) Cancelled Baso % (Auto) Cancelled Absolute Neuts (auto) Cancelled Absolute Lymphs (auto) Cancelled Total Counted Cancelled Neutrophils % (Manual) Cancelled Band Neutrophils % Cancelled Lymphocytes % (Manual) Cancelled Monocytes % (Manual) Cancelled Eosinophils % (Manual) Cancelled Basophils % (Manual) Cancelled Metamyelocytes % Cancelled Myelocytes % Cancelled Promyelocytes % Cancelled Blast Cells % Cancelled Plasma Cell % (Manual) Cancelled Other Cells % Cancelled Nucleated RBC % Cancelled Nucleated RBCs/100 WBC Cancelled Differential Comment Cancelled Diff Path Review Cancelled Hypersegmented Neuts Cancelled Atypical Lymphocytes Cancelled Reactive Lymphocytes Cancelled Smudge Cells Cancelled Toxic Granulation Cancelled Toxic Vacuolation Cancelled Dohle Bodies Cancelled Gail Rods Cancelled Platelet Estimate Cancelled Plt Morphology Comment Cancelled RBC Morphology Cancelled Polychromasia Cancelled Hypochromasia Cancelled Poikilocytosis Cancelled Basophilic Stippling Cancelled Anisocytosis Cancelled Microcytosis Cancelled Macrocytosis Cancelled Spherocytes Cancelled Sickle Cells Cancelled Target Cells Cancelled Tear Drop Cells Cancelled Ovalocytes Cancelled Stomatocytes Cancelled [place] Bodies Cancelled [place] Cells Cancelled Bite Cells Cancelled Crenated Cell Cancelled Acanthocytes (Spur) Cancelled Rouleaux Cancelled Schistocytes Cancelled Sodium Cancelled Potassium Cancelled Chloride Cancelled Carbon Dioxide Cancelled Anion Gap Cancelled BUN Cancelled Creatinine Cancelled Estim Creat Clear Calc Cancelled Est GFR (MDRD) Af Amer Cancelled Est GFR (MDRD) Non-Af Cancelled BUN/Creatinine Ratio Cancelled Glucose Cancelled Calcium Cancelled Total Bilirubin Cancelled AST Cancelled ALT Cancelled Alkaline Phosphatase Cancelled Total Protein Cancelled Albumin Cancelled Globulin Cancelled Albumin/Globulin Ratio Cancelled Urine Color Yellow Urine Clarity Clear Urine pH 5.0 Ur Specific [place] 1.020 Urine Protein Negative Urine Glucose (UA) Normal Urine Ketones Negative Urine Occult Blood 25 H Urine Nitrite Negative Urine Bilirubin Negative Urine Urobilinogen Normal Ur Leukocyte Esterase Negative Urine RBC 0 SEEN Urine WBC 0 SEEN Ur Squamous Epith Cells 0-5 SEEN Calcium Oxalate Crystal 2+ Urine Bacteria 1+ Urine Mucus 1+ 07/19/21 07/19/21 16:45 16:45 WBC 7.8 Corrected WBC RBC 4.28 Hgb 12.5 Hct 37.9 MCV 88.6 MCH 29.2 MCHC 33.0 RDW Std Deviation 40.8 RDW Coeff of Tomasz 12.5 Plt Count 214 MPV 9.7 Immature Gran % (Auto) 0.300 Neut % (Auto) 59.1 Lymph % (Auto) 29.5 [place] % (Auto) 9.7 Eos % (Auto) 0.9 Baso % (Auto) 0.5 Absolute Neuts (auto) 4.6 Absolute Lymphs (auto) 2.30 Total Counted Neutrophils % (Manual) Band Neutrophils % Lymphocytes % (Manual) Monocytes % (Manual) Eosinophils % (Manual) Basophils % (Manual) Metamyelocytes % Myelocytes % Promyelocytes % Blast Cells % Plasma Cell % (Manual) Other Cells % Nucleated RBC % 0 Nucleated RBCs/100 WBC Differential Comment Diff Path Review Hypersegmented Neuts Atypical Lymphocytes Reactive Lymphocytes Smudge Cells Toxic Granulation Toxic Vacuolation Dohle Bodies Gail Rods Platelet Estimate Plt Morphology Comment RBC Morphology Polychromasia Hypochromasia Poikilocytosis Basophilic Stippling Anisocytosis Microcytosis Macrocytosis Spherocytes Sickle Cells Target Cells Tear Drop Cells Ovalocytes Stomatocytes [place] Bodies [place] Cells Bite Cells Crenated Cell Acanthocytes (Spur) Rouleaux Schistocytes Sodium 137 Potassium 3.7 Chloride 108 H Carbon Dioxide 24.0 Anion Gap 5 BUN 12 Creatinine 0.85 Estim Creat Clear Calc 78.63 Est GFR (MDRD) Af Amer 103 Est GFR (MDRD) Non-Af 85 BUN/Creatinine Ratio 14.2 Glucose 97 Calcium 8.6 Total Bilirubin 0.20 AST 14 L ALT 22 Alkaline Phosphatase 89 Total Protein 7.4 Albumin 4.0 Globulin 3.4 Albumin/Globulin Ratio 1.2 Urine Color Urine Clarity Urine pH Ur Specific [place] Urine Protein Urine Glucose (UA) Urine Ketones Urine Occult Blood Urine Nitrite Urine Bilirubin Urine Urobilinogen Ur Leukocyte Esterase Urine RBC Urine WBC Ur Squamous Epith Cells Calcium Oxalate Crystal Urine Bacteria Urine Mucus Radiography Diagnostic Testing: Clinical Impression(s) from Imaging Studies Abdomen/Pelvis CT 07/19/21 16:04 IMPRESSION: Fluid-filled loops of bowel in the pelvis with a mildly dilated loop of small bowel in the upper abdomen which may represent enteritis. No other acute abnormalities are identified. The appendix is within normal limits. Electronically Signed: Ike Huffman MD at 17:26 EDT , Discharge Plan Triage Chief Complaint: Abd Pain ED Provider: Heladio Everett Dx/Rx/DC Orders Instructions: ED Gastroenteritis, Noninfectious Prescriptions: No Action diclofenac potassium 50 mg tablet 50 mg PO BID RF: 0 cholecalciferol (vitamin D3) 1,250 mcg (50,000 unit) capsule 1,250 mcg PO QWEEK RF: 0 mirtazapine 15 mg tablet 15 mg PO QHS RF: 0 oxycodone-acetaminophen [Percocet] 5-325 mg tablet 1 tab PO Q6H 7 Days Qty: 20 RF: 0 [place] 200 mg tablet 200 mg PO BID Qty: 60 RF: 6 Primary Care Provider: Brielle Kulkarni NP Referrals: Belkys Cadet MD [STAFF PHYSICIAN] - As Needed Brielle Kulkarni NP, [employer] [Primary Care Provider] - Disposition Disposition: Home, Self Care Discharge Date/Time: 07/19/21 19:04
[2021-07-19] MEDS: Ondansetron 4 MG/2 ML Vial IV (16:25)
[2021-07-19] MEDS: Morphine 4 MG/ML Syringe IV (16:25)
[2021-07-19 16:35] LABS: Red Blood Cells-Urine 0 SEEN /hpf (0-5); White Blood Cells 0 SEEN /hpf (0-5)
[2021-07-19 17:12] LABS: Absolute Neutrophil Count 4.6 X10^3/uL (2.0-7.7); Basophil# 0.04 X10^3/uL; Basophil% 0.5 % (0-1); Eosinophil# 0.07 X10^3/uL; Eosinophils% 0.9 % (0-5); Hematocrit 37.9 % (37-47); Hemoglobin 12.5 g/dL (12.0-15.0); Lymphocyte % 29.5 % (19-41); Mean Corpuscular Hgb 29.2 pg (27.0-32.0); Mean Corpuscular Volume 88.6 fL (81-99); Mean Platelet Vol. 9.7 fl (6.2-12.0); Monocyte# 0.76 X10^3/uL; Monocyte% 9.7 % (0-10); NRBC Flagged by Analyzer 0 % (0-5); Neutrophil # 4.61 X10^3/uL (2.7-7.7); Neutrophil % 59.1 % (47-70); Platelet Count 214 K/mm3 (150-450); RBC Distribution Width CV 12.5 % (11.6-14.6); RBC Distribution Width SD 40.8 fl (35.1-43.9); Red Blood Count 4.28 M/mm3 (4.2-5.4); White Blood Count 7.8 K/mm3 (4.4-11.0)
[2021-07-19 17:29] LABS: ALB/GLOB Ratio 1.2 RATIO (0.9-2.4); AST(SGOT) 14 U/L (15-37); Alanine Aminotransfer ALT/SGPT 22 U/L (13-56); Alkaline Phosphatase 89 U/L (45-117); Anion Gap 5 (5-15); BUN 12 mg/dL (7-18); BUN/Creat Ratio 14.2 RATIO (10-20); Calcium,Total 8.6 mg/dL (8.5-10.1); Chloride 108 mmol/L (98-107); Creatinine, Serum 0.85 mg/dL (0.55-1.02); EST Glomerular Filtration Rate 85 mL/min (>60); Est Glom Filt Rate - Afr Amer 103 mL/min (>60); Estimated Creatinine Clearance 78.63 ml/min; Globulin 3.4 g/dL (2.2-4.2); Glucose 97 mg/dL (74-106); Potassium 3.7 mmol/L (3.5-5.1); Protein, Total 7.4 g/dL (6.4-8.2); Sodium Level 137 mmol/L (136-145)
[2021-07-19 18:12] LABS: Color, Urine Yellow (Yellow); Glucose, Dipstick Normal (Normal); Ketone-Dipstick Negative (Negative); Leukocyte Esterase-Dipstick Negative /ul (Negative); Nitrite-Dipstick Negative (Negative); Occult Blood-Urine 25 /ul (Negative); Protein-Dipstick Negative (Negative); Urine Bilirubin Dipstick Negative (Negative); Urine Clarity Clear (Clear); Urine Urobilinogen Normal (Normal)
[2021-07-19 18:24] LABS: Bacteria 1+ /hpf (None Seen); Calcium Oxalate Crystals Ur 2+ /hpf (<or=2+); Mucous, Urine 1+ /hpf (<or=2+); Squamous Epithelial Cells - UA 0-5 SEEN /hpf (5-10)
[2021-07-19 18:56] VITALS: BP 101/65
== END 2021-07-19 19:04 | disposition home or self-care (01) ==
PROVIDERS: Emergency Provider Student in an Organized Health Care Education/Training Program; PCP Nurse Practitioner Family; Visit Provider Student in an Organized Health Care Education/Training Program
DX: K52.9 Noninfective gastroenteritis and colitis, unspecified (principal); R19.7 Diarrhea, unspecified; R11.2 Nausea with vomiting, unspecified; F17.210 Nicotine dependence, cigarettes, uncomplicated; Z79.899 Other long term (current) drug therapy
CPT/HCPCS: 74177; 80053; 81001; 85025; 96374; 96375; 99283; Q9967; A4216; J2405